=== PATIENT | male | born 1950 | race Caucasian/White ===

== ENCOUNTER 2016-10-10 15:33 | Emergency (ER) ==
[2016-10-10 15:37] VITALS: BP 150/90; TEMP 97.2; BMI 41.5
[2016-10-10] MEDS ORDERED: TETRACAINE 0.5% OPTH SOL OP STA (15:38)
[2016-10-10] MEDS ORDERED: FLUORETS OP STA (15:38)
[2016-10-10] MEDS ORDERED: EYE-STREAM OP STA (15:38)
[2016-10-10] MEDS ORDERED: TETRACAINE 0.5% UNIT-DOSE OP STA (15:48)
--- NOTE | 2016-10-10 15:54 | ED.PDOC ---
General ED Provider: Dr. RHIANNON CLARK-ER Chief Complaint: Eye Problem Stated Complaint: i think i had something in my eye but i washed it out Time Seen by Physician: 15:35 Mode of Arrival: Walk-In Information Source: Patient, Family Exam Limitations: No limitations Primary Care Provider: ESTELLA LEÓN Nursing and Triage Documentation Reviewed and Agree: Yes EENT Complaint Exam - Eye Complaint/Exam Onset/Duration: a few hours Symptoms Are: Still present Timing: Constant Initial Severity: Mild Current Severity: Mild Location: Discreet, Right Aggravating: Reports: None Alleviating: Reports: None Associated Signs and Symptoms: Reports: Clear drainage. Denies: Photophobia, Purulent drainage, Vision impairment, Fever, Swelling Related History: Reports: Foreign body Eye Surgical History: Reports: None Penetrating Injury Risk Factors: None Globe Rupture Risk Factors: None Acute Glaucoma Risk Factors: None Optic Artery Occlusion Risk Factors: None Visual Field: Normal Extraocular Movement: Normal Orbit Findings: Normal Globe Findings: Intact Lid Findings: Normal Conjunctival Findings: Red Corneal Findings: Clear Fluorescein Uptake: No Fundi: Normal Review of Systems - Review Of Systems Constitutional: Reports: No symptoms Eyes: Reports: Inflammation. Denies: Foreign body sensation, Photophobia, Tunnel vision Ears, Nose, Mouth, Throat: Reports: No symptoms Respiratory: Reports: No symptoms Cardiac: Reports: No symptoms GI: Reports: No symptoms : Reports: No symptoms Musculoskeletal: Reports: No symptoms Skin: Reports: No symptoms Neurological: Reports: No symptoms Endocrine: Reports: No symptoms Hematologic/Lymphatic: Reports: No symptoms All Other Systems: Reviewed and Negative Past Medical History - Past Medical History Endocrine: Reports: Unknown Cardiovascular: Reports: Unknown Respiratory: Reports: Unknown Hematological: Reports: Unknown Gastrointestinal: Reports: Unknown Genitourinary: Reports: Unknown Neuro/Psych: Reports: Unknown Musculoskeletal: Reports: Unknown Cancer: Reports: Unknown - Surgical History General Surgical History: Reports: Unknown - Family History Family History: Reports: Unknown - Social History Smoking Status: Never smoker Hx Substance Use: No Alcohol Screening: None Lives: With family Physical Exam - Physical Exam Appearance: Well-appearing, No pain distress, Well-nourished Eyes: YAJAIRA, EOMI, Conjunctiva inflammed ENT: Ears normal, Nose normal, Oropharynx normal Neck: Supple Respiratory: Airway patent, Breath sounds clear, Breath sounds equal, Respirations nonlabored Cardiovascular: RRR GI/: Soft, Nontender, No masses, Bowel sounds normal, No Organomegaly Musculoskeletal: Normal strength, ROM intact, No edema, No calf tenderness Skin: Warm, Dry, Normal color Neurological: Sensation intact, Motor intact, Reflexes intact, Cranial nerves intact, Alert, Oriented Psychiatric: Affect appropriate, Mood appropriate Procedures - Eye Procedure Location of Foreign Body: none noted Tetracaine Drops Administered: Yes Eye FB Removal: Other (bothlids retracted--no fb noted--fluourescein dye neg for abrasion) Eye Irrigated: Yes Re-Evaluation - Re-Evaluation Time of Re-Evaluation: 15:54 Status: Improved Vital Signs Stable: Yes Pain Level: 0 Appearance: NAD Lungs: Clear Skin: Warm and Dry Neuro: Alert and Oriented X3 CV: RRR Critical Care Note - Critical Care Note Total Time (mins): 0 Course - Course Orders, Labs, Meds: Orders Category Date Time Status Balanced Salt Solution [Eye-Stream] MEDS 10/10/16 15:38 Discontinued 1 bottle OP ONCE STA Fluorescein Sodium [Fluorets] MEDS 10/10/16 15:38 Discontinued 1 strip OP ONCE STA Tetracaine HCl/Pf [Tetracaine 0.5% Unit-Dose] MEDS 10/10/16 15:48 Discontinued 2 drop OP ONCE STA Medications Discontinued Medications Generic Name Dose Route Start Last Admin Trade Name Anthonyq PRN Reason Stop Dose Admin Eye Irrigation Solution 1 bottle 10/10/16 15:38 10/10/16 15:51 Eye-Stream OP 10/10/16 15:39 1 bottle ONCE STA Administration Fluorescein Sodium 1 strip 10/10/16 15:38 10/10/16 15:51 Fluorets OP 10/10/16 15:39 1 strip ONCE STA Administration Tetracaine HCl 2 drop 10/10/16 15:48 10/10/16 15:52 Tetracaine 0.5% Unit-Dose OP 10/10/16 15:49 2 drop ONCE STA Administration Vital Signs: Temp Pulse Resp BP Pulse Ox 10/10/16 15:33 97.2 F L 76 18 150/90 H 97 Departure - Departure Time of Disposition: 15:55 Disposition: HOME SELF-CARE Discharge Problem: Conjunctivitis Qualifiers: Conjunctivitis type: acute Acute conjunctivitis type: unspecified Laterality: right Qualifier Code: (H10.31) Unspecified acute conjunctivitis, right eye Instructions: Conjunctivitis (ED) Condition: Good Pt referred to PMD for follow-up: Yes Additional Instructions: ciloxan eye drops 1 drop into the eye bid x 5 days=--see eye doctor tomorrow if not improved Allergies/Adverse Reactions: Allergies iodine Adverse Reaction (Verified 10/10/16 15:37) Home Medications: Ambulatory Orders Allopurinol 100 mg PO BID 10/10/16 Lisinopril/Hydrochlorothiazide [Zestoretic 20-12.5 mg Tablet] 1 each PO DAILY Disposition Discussed With: Patient, Family
== END 2016-10-10 15:57 | disposition home or self-care (01) ==
LOC: ED 15:33
DX: H10.31 Unspecified acute conjunctivitis, right eye (principal)
CPT/HCPCS: 99283

== ENCOUNTER 2017-09-14 13:43 | Outpatient (CLI) ==
--- NOTE | 2017-09-14 14:45 | CT ---
EXAM: CT of the lumbar spine without contrast History: Lower back pain. Technique: Multiplanar CT images through the lumbar spine were obtained without the administration o f IV contrast Findings: Prominent prostate abutting the base of the bladder. No acute fracture or subluxation of the lumbar spine. Moderate to severe disc space narrowing at L4- L5 and L5-S1 with endplate sclerosis and osteophyte formation. Mild to moderate disc space narrowing seen elsewhere. T12-L1: Small posterior disc osteophyte complex with no significant bony central canal stenosis or b scott neural foraminal narrowing. L1-L2: Small disc bulge with mild bony central canal stenosis. Moderate bilateral bony neural jermaine inal narrowing secondary to ligamentous and facet hypertrophy. L2-L3: Small disc bulge with mild central canal stenosis. Mild to moderate bilateral bony neural for aminal narrowing secondary to ligamentous and facet hypertrophy. L3-L4: Modest disc protrusion effacing the anterior thecal sac causing severe central canal stenosis. Moderate to severe bilateral bony neural foraminal narrowing secondary to ligamentous and facet hyp ertrophy. L4-L5: Posterior disc osteophyte complex with moderate central canal stenosis. Severe bilateral bon y neural foraminal narrowing secondary to ligamentous and facet hypertrophy. L5-S1: Posterior disc osteophyte complex with mild to moderate central canal stenosis. Severe bilat eral bony neural foraminal narrowing secondary to ligamentous and facet hypertrophy. Impression: 1. No acute osseous abnormality of the lumbar spine. 2. Moderate to severe degenerative disc disease at L4-L5 and L5-S1. 3. Level by level analysis as detailed above with multilevel central canal stenosis that is severe a t L3-L4 and multilevel bilateral bony neural foraminal narrowing which is severe bilaterally at L4-L5 and L5-S1
== END 2017-09-14 13:44 | disposition home or self-care (01) ==
LOC: RAD 13:43
PROVIDERS: ATTEND Internal Medicine
DX: M54.5 Low back pain (principal)

== ENCOUNTER 2018-03-16 14:47 | Outpatient (CLI) | payer OTHER ==
--- NOTE | 2018-03-16 17:08 | DI ---
EXAM: Radiographs, lumbar spine HISTORY: Back pain. COMPARISON: 09/14/2017. TECHNIQUE: Five views. FINDINGS: Alignment is normal. Vertebral body heights are maintained. There is moderate to severe loss of disc height at L4-5 and L5-S1 with moderate loss of disc height at L3-4. Moderate multilevel endplate osteophyte formation and facet arthropathy noted. No fracture or subluxation identified. Sacral arcuate lines are intact. No localized soft tissue abnormality detected. Clips seen in the r ight upper abdomen. IMPRESSION: Multilevel degenerative changes, moderate to severe in the lower lumbar spine, which appears similar to the prior study.
== END 2018-03-16 14:48 | disposition home or self-care (01) ==
LOC: RAD 14:47
PROVIDERS: ATTEND Internal Medicine
DX: M54.9 Dorsalgia, unspecified (principal)

== ENCOUNTER 2018-05-29 13:58 | Outpatient (CLI) ==
--- NOTE | 2018-05-29 14:43 | DI ---
EXAM: Two views of the chest. History: Preoperative evaluation. Comparison: Chest radiograph 12/15/2015 Findings: Heart is mildly enlarged. No focal consolidation. No appreciable pleural fluid and no pn eumothorax. No acute osseous abnormalities. Atherosclerotic vascular calcifications. Impression: Mild cardiomegaly without acute disease in the chest
== END 2018-05-29 13:59 | disposition home or self-care (01) ==
LOC: RAD 13:58 → LAB 13:59
PROVIDERS: ATTEND Urology
DX: Z01.818 Encounter for other preprocedural examination (principal); C61 Malignant neoplasm of prostate; M54.9 Dorsalgia, unspecified; Z51.81 Encounter for therapeutic drug level monitoring; Z01.89 Encounter for other specified special examinations
CPT/HCPCS: 36415; 80053; 80074; 81001; 85025; 85610; 85730; 93005; 93010

== ENCOUNTER 2018-06-22 09:27 | Outpatient (CLI) | END 2018-06-22 09:28 | disposition home or self-care (01) | LOC: LAB 09:27 | PROVIDERS: ATTEND Urology | DX: R82.99 Other abnormal findings in urine (principal) | CPT/HCPCS: 87086 ==

== ENCOUNTER 2018-06-27 07:46 | Outpatient (CLI) ==
--- NOTE | 2018-06-29 11:53 | STRESSECHO ---
Date of Test: 06/27/18 Ordering Physician: DR. ESTELLA LEÓN Occupation: RETIRED Reason for Exam: CARDIOMEGALY, HYPERTENSION, SURGICAL CLEARANCE Height: 70" Weight: 262 LBS Current Medications: LISINOPRIL Resting EKG: SINUS RHYTHM/ NO ACUTE CHANGES Target Heart Rate: 129/152 S-T SEGMENT STAGE MPH/GRADE HEART RATE BPM BLOOD PRESSURE MMHG RHYTHM +/- ELEVATION DEPRESSION SYMPTOMS,COMMENTS AT REST 50 BPM 140/78 MMHG SR X NONE 1 1.7/10% 105 BPM 160/72 MMHG SR X NONE 2 2.5/12% 3 3.4/14% 4 4.2/16% 5 5.0/18% Immediately After 130 BPM 174/70 MMHG SR X FATIGUE Minutes Post Exercise 5:00 60 BPM 148/80 MMHG SR X NO COMMENTS Minutes Post Exercise DURATION OF EXERCISE: 4:47 MAXIMUM HEART RATE REACHED: 130 BPM REASON FOR TERMINATION: FATIGUE 95% OXYGEN SATURATION ON ROOM AIR WITH EXERCISE METS 7.0 INTERPRETATION: 1. NO EVIDENCE OF ISCHEMIA BY ST-T WAVE 2. NO CHEST PAIN OR DISCOMFORT 3. ONE PVC POST EXERCISE 4. BLOOD PRESSURE RESPONSE: NORMAL NORMAL LEFT VENTRICULAR CONTRACTILITY--RESTING AND POST EXERCISE MTDD
--- NOTE | 2018-06-29 13:15 | ECHOSTRESS ---
Date of Exam: 06/27/18 Ordering Physician: DR. ESTELLA LEÓN Reason for Echo: CARDIOMEGALY, SURGICAL CLEARANCE, STRESS TEST--NO ISCHEMIA M-Mode Normal Adult Results LV Dimensions Normal Adult Results AoV Opening excursions >1.6 LVEDD-base- 3.5-5.8 Ao root dimensions 2.0-3.7 LVESD-base- 3.1-4.6 L. Atrium dimensions 1.9-3.8 Post. Wall thickness 0.8-1.1 IV septum (thickness) 0.7-1.2 Post. Wall excursion 0.72-1.3 Septal motion Systolic motion R. Ventricular cavity 1.5-2.0 LVEF 60% Paradoxical septal wall motion 2-D: NORMAL LEFT VENTRICULAR CONTRACTILITY--RESTING AND POST EXERCISE M-MODE: MV: AV: TV: PV: CHAMBER SIZE: WALL MOTION: NORMAL LEFT VENTRICULAR CONTRACTILITY--RESTING AND POST EXERCISE PERICARDIUM: INTERPRETATION: 1. NORMAL LEFT VENTRICULAR CONTRACTILITY--RESTING AND POST EXERCISE MTDD
== END 2018-06-27 07:47 | disposition home or self-care (01) ==
LOC: CAR 07:46
PROVIDERS: ATTEND Internal Medicine
DX: I51.7 Cardiomegaly (principal); Z01.810 Encounter for preprocedural cardiovascular examination

== ENCOUNTER 2019-02-23 14:32 | Outpatient (CLI) | payer OTHER ==
--- NOTE | 2019-02-23 15:28 | DI ---
EXAM: Lumbar spine three view HISTORY: Back pain COMPARISON: 03/16/2018 TECHNIQUE: Three views lumbar spine were performed FINDINGS: Sacroiliac joints intact. Sacral arcuate intact. Vertebral bodies normal height. No fra cture. No subluxation. Multilevel marginal osteophyte formation. Multilevel intervertebral disc sp marlyn narrowing with moderate to severe intervertebral disc space narrowing L4-L5 and severe interverte bral disc space narrowing L5-S1. Multilevel facet arthrosis, greatest in the lower spine. IMPRESSION: Chronic discogenic degenerative disease and facet arthrosis, advanced in the lower lumba r spine.
== END 2019-02-23 14:33 | disposition home or self-care (01) ==
LOC: RAD 14:32
PROVIDERS: ATTEND Internal Medicine
DX: M54.9 Dorsalgia, unspecified (principal)